=== PATIENT | male | born 1960 | race Caucasian/White ===

== ENCOUNTER 2017-01-18 11:28 | Emergency (ER) | payer MEDICAID, OTHER, SELFPAY ==
[2017-01-18 11:49] VITALS: BP 142/87
[2017-01-18] MEDS ORDERED: Diphtheria,Pertussis(Acell),Tetanus Vaccine 0.5 ML SDV IM ONE (11:55)
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
== END 2017-01-18 12:17 | disposition home or self-care (01) ==
LOC: JP.ED 11:28
DX: S01.01XA Laceration without foreign body of scalp, initial encounter (principal); F17.210 Nicotine dependence, cigarettes, uncomplicated; Z79.82 Long term (current) use of aspirin; Z79.899 Other long term (current) drug therapy; Z98.890 Other specified postprocedural states; W22.8XXA Striking against or struck by other objects, initial encounter
CPT/HCPCS: 12002; 90471; 90715; 99282-25; 99283-25